=== PATIENT | male | born 1965 | race Two or more races ===

== ENCOUNTER 2024-05-20 08:58 | Emergency (ER) | payer BC, OTHER ==
[~2024-05-20] VITALS: Ht 175.3 cm; Wt 111.3 kg
[2024-05-20 09:10] VITALS: BP 130/80; PULSE 69; RESP 16; O2SAT 99
[2024-05-20 09:19] LABS: Urine Bacteria None Seen /hpf (None Seen)
[2024-05-20 09:44] LABS: Urine Blood TRACE /uL (Negative); Urine Clarity Clear (Clear); Urine Color Yellow (Yellow); Urine Mucus FEW (None Seen); Urine Protein, UAD Negative (Negative); Urine Specific Gravity 1.027 (1.001-1.035); Urine Squamous Epithelial Cell None Seen /hpf (<5); Urine Urobilinogen Normal (Negative); Urine WBC <1 /hpf (0 - 3)
--- NOTE | 2024-05-20 10:00 | ED.PDOC ---
GI ASSESSMENT HPI Comments 59 year old male presents to the ED with a chief complaint of abdominal pain onset 1 week. Patient states he has been experiencing diffused abdominal pain as well as constipation for the past week. PMHx HTN. Denies nausea, vomiting, diarrhea, shortness of breath, chest pain, headache. No other symptoms or modifying factors present at this time. Chief Complaint: Abdominal Pain Time Seen by MD: 09:18 Reviewed Notes: Medications, Allergies Allergies: Coded Allergies: NO KNOWN ALLERGIES (Unverified , 05/20/24) Information Source: Patient Mode of Arrival: Ambulatory Timing: Weeks Duration: Since onset Prehospital treatment: None Severity: Moderate Recent: None Recent Hx of: None Pain Location: Diffuse Associated sign and symptoms: Constipation, Abdominal Pain Past Medical History PAST MEDICAL HISTORY: HTN Surgical History: Denies all surgeries Family History Family History: Reviewed,noncontributory to illness, No family hx of Cancer, No family hx of DM, No family hx of Heart flo, No family hx of HTN, No family hx ofKidney flo, No family hx of Liver flo, No family hx of Lung flo, No family hx of Stroke Social History Smoker: Non-Smoker Alcohol: Denies ETOH Use Drugs: Denies Drug Use Lives In: Home Constitutional: denies: chills, diaphoresis, fatigue, fever, malaise, sweats, weakness, others EENTM: denies: blurred vision, double vision, ear bleeding, ear discharge, ear drainage, ear pain, ear ringing, eye pain, eye redness, hearing loss, mouth pain, mouth swelling, nasal discharge, nose bleeding, nose congestion, nose pain, photophobia, tearing, throat pain, throat swelling, voice changes, others Respiratory: denies: cough, hemoptysis, orthopnea, SOB at rest, shortness of breath, SOB with excertion, stridor, wheezing, others Cardiovascular: denies: chest pain, dizzy spells, diaphoresis, Dyspnea on exertion, edema, irregular heart beat, left arm pain, lightheadedness, palpitations, PND, syncope, others Gastrointestinal: reports: abdominal pain, constipated; denies: abdomen distended, blood streaked bowels, diarrhea, dysphagia, difficulty swallowing, hematemesis, melena, nausea, poor appetite, poor fluid intake, rectal bleeding, rectal pain, vomiting, others Genitourinary: denies: burning, dysuria, flank pain, frequency, hematuria, incontinence, penile discharge, penile sore, pain, testicle pain, testicle swelling, urgency, others Neurological: denies: dizziness, fainting, headache, left sided numbness, left sided weakness, numbness, paresthesia, pre-existing deficit, right sided numbness, right sided weakness, seizure, speech problems, tingling, tremors, weakness, others Musculoskeletal: denies: back pain, gout, joint pain, joint swelling, muscle pain, muscle stiffness, neck pain, others Integumetry: denies: bruises, change in color, change in hair/nails, dryness, laceration, lesions, lumps, rash, wounds, others Allergic/Immunocompromised: denies: Difficulty Healing, Frequent Infections, Hives, Itching, others Hematologic/Lymphatic: denies: anemia, blood clots, easy bleeding, easy bruising, swollen glands, others Endocrine: denies: excessive hunger, excessive sweating, excessive thirst, excessive urination, flushing, intolerance to cold, intolerance to heat, unexplained weight gain, unexplained weight loss, others Psychiatric: denies: anxiety, bipolar disorder, depression, hopeless, panic disorder, schizophrenia, sleepless, suicidal, others All Other Systems: Reviewed and Negative Physical Exam General Appearance: Moderate Distress HEENT: Normal ENT Inspection, Pharynx Normal, TMs Normal Neck: Full Range of Motion, Non-Tender, Normal, Normal Inspection Respiratory: Chest Non-Tender, Lungs Clear, No Accessory Muscle Use, No Respiratory Distress, Normal Breath Sounds Cardiovascular: No Edema, No JVD, No Murmur, No Gallop, Normal Peripheral Pulses, Regular Rate/Rhythm Breast Exam: Deferred Gastrointestinal: No Organomegaly, Non Tender, No Pulsatile Mass, Normal Bowel Sounds, Soft Genitalia: Deferred Pelvic: Deferred Rectal: Deferred Extremities: No calf tenderness, Normal capillary refill, Normal inspection, Normal range of motion, Non-tender, No pedal edema Musculoskeletal : Apperance: Normal Neurologic: Alert, tie binder II-XII nml as Tested, No Motor Deficits, Normal Affect, Normal Mood, No Sensory Deficits Cerebellar Function: Normal Reflexes: Normal Skin: Dry, Normal Color, Warm Peripheral Pulses: 3+ Radial (R), 3+ Radial (L) Lymphatic: No Adenopathy Was a procedure done? Was a procedure done?: No GI differential Dx Differential Diagnosis: Constipation, Diverticular disease, Esophagitis, Gastritis/PUD, Gastroenteritis X-Ray, Labs, Meds, VS Vital Signs Date Time Temp Pulse Resp B/P (MAP) Pulse Ox O2 Delivery O2 Flow Rate FiO2 05/20/24 09:10 99.2 69 16 130/80 (97) 99 Lab Test 05/20/24 09:13 Range/Units Urine Color Yellow Yellow Urine Clarity Clear Clear Urine pH 6.0 5.0-9.0 Urine Specific [place] 1.027 1.001-1.035 Urine Protein Negative Negative Urine Ketones Negative Negative Urine Blood Trace H Negative /uL Urine Nitrite Negative Negative Urine Bilirubin Negative Negative Urine Urobilinogen Normal Negative mg/dL Urine Leukocyte Esterase Negative Negative /uL Urine RBC 2 0 - 3 /hpf Urine WBC <1 0 - 3 /hpf Urine Squamous Epithelial Cells None seen <5 /hpf Urine Bacteria None seen None Seen /hpf Urine Mucus Few None Seen Urine Glucose Normal Normal mg/dL Patient alert. Complaining of abdominal pain. Vitals stable. Urinalysis shows blood. Possible kidney stone. Establish intravenous access. Was given fluids. Was given Toradol. Explained to the patient. Continue cardiac monitoring. Time of 1ST Reevaluation: 09:48 Reevaluation 1ST: Unchanged Patient Education/Counseling: Diagnosis, Treatment, Prognosis Family Education/Counseling: No Family Present Additional Information I reviewed the following notes from patient's past medical encounters: The following tests were ordered, and results were reviewed by me: UA, CBC, BMP, CT AB PEL WO CON I reviewed and agreed with the following test results read by other providers: CT ABD PEL WO CON I discussed treatment and results with medical personnel and: patient Departure 1 Departure Time of Disposition: 11:29 Impression: Primary Impression: Acute abdominal pain Disposition: ADMITTED INPATIENT Admit to: Med Surg Condition: Guarded Critical Care Note Critical Care Time?: No Stability Stability form required: No Heart Score Heart Score: Heart Score Response (Comments) Value History N/A 0 EKG N/A 0 Age N/A 0 Risk Factors N/A 0 Troponin N/A 0 Total 0 I personally scribed for GARRETT ANDERSON MD ([email or web address]) on 05/20/24 at 10:00. Electronically submitted by Yana Johnson ([email or web address]). I personally scribed for GARRETT ANDERSON MD ([email or web address]) on 05/20/24 at 10:39. Electronically submitted by Yana Johnson ([email or web address]). I personally scribed for GARRETT ANDERSON MD ([email or web address]) on 05/20/24 at 15:09. Electronically submitted by Yana Johnson ([email or web address]). GARRETT ANDERSON MD May 20, 2024 10:00
[2024-05-20] MEDS ORDERED: SODIUM CHLORIDE 0.9% 1,000 ML IVB ONE (11:30)
[2024-05-20] MEDS ORDERED: KETOROLAC TROMETH 30 MG/ML 1ML VIAL IV ONE (11:30)
[2024-05-20] MEDS ORDERED: ONDANSETRON HCL 4 MG/2 ML VIAL IV ONE (11:30)
== END 2024-05-20 14:31 | disposition left against medical advice (07) ==
LOC: ER 08:58
DX: R10.84 Generalized abdominal pain (principal); K59.00 Constipation, unspecified; I10 Essential (primary) hypertension
CPT/HCPCS: 81001

== ENCOUNTER 2024-06-09 08:47 | Inpatient (IN) | payer BC ==
[~2024-06-09] VITALS: Ht 175.3 cm; Wt 109.3 kg
[2024-06-09 09:01] LABS: Urine Bacteria None Seen /hpf (None Seen)
[2024-06-09 09:09] LABS: Urine Blood TRACE /uL (Negative); Urine Clarity Clear (Clear); Urine Color Light-Yellow (Yellow); Urine Mucus FEW (None Seen); Urine Protein, UAD Negative (Negative); Urine Specific Gravity 1.025 (1.001-1.035); Urine Squamous Epithelial Cell FEW /hpf (<5); Urine Urobilinogen Normal (Negative); Urine WBC < 1 /HPF (0-3)
[2024-06-09 09:25] VITALS: PULSE 69; RESP 17; O2SAT 94
--- NOTE | 2024-06-09 10:20 | ED.PDOC ---
GI ASSESSMENT HPI Comments 59 y/o M presents to the ED for CC of abdominal pain. Patient states, that he has been experiencing abdominal pain [id number]; with symptoms worsening in the last 3days. Patient relays, that he has been constipated and has been taking prolax with no relief. Patient comments on current 02/20 abdominal pain. Patient denies social history. Patient denies dysuria, hematuria, or N/V/D. No other symptoms or modifying factors at this time. Chief Complaint: Abdominal Pain Time Seen by MD: 09:10 Primary Care Provider: NONE Reviewed Notes: Nurses Notes, Medications, Allergies Allergies: Coded Allergies: NO KNOWN ALLERGIES (Unverified , 05/20/24) Information Source: Patient Mode of Arrival: Ambulatory Timing: Weeks Duration: Since onset Prehospital treatment: None Vomitus: None Stool: Normal Severity: Moderate Recent: Travel Recent Hx of: None Pain Location: Diffuse Modifying Factors: Nothing Associated sign and symptoms: None Past Medical History PAST MEDICAL HISTORY: HTN Surgical History: Denies all surgeries Family History Family History: Reviewed,noncontributory to illness, No family hx of Cancer, No family hx of DM, No family hx of Heart flo, No family hx of HTN, No family hx ofKidney flo, No family hx of Liver flo, No family hx of Lung fol, No family hx of Stroke Social History Smoker: Non-Smoker Alcohol: Denies ETOH Use Drugs: Denies Drug Use Lives In: Home Constitutional: denies: chills, diaphoresis, fatigue, fever, malaise, sweats, weakness, others EENTM: denies: blurred vision, double vision, ear bleeding, ear discharge, ear drainage, ear pain, ear ringing, eye pain, eye redness, hearing loss, mouth irma n, mouth swelling, nasal discharge, nose bleeding, nose congestion, nose pain, photophobia, tearing, throat pain, throat swelling, voice changes, others Respiratory: denies: cough, hemoptysis, orthopnea, SOB at rest, shortness of breath, SOB with excertion, stridor, wheezing, others Cardiovascular: denies: chest pain, dizzy spells, diaphoresis, Dyspnea on exertion, edema, irregular heart beat, left arm pain, lightheadedness, palpitations, PND, syncope, others Gastrointestinal: reports: abdominal pain, constipated; denies: abdomen distended, blood streaked bowels, diarrhea, dysphagia, difficulty swallowing, hematemesis, melena, nausea, poor appetite, poor fluid intake, rectal bleeding, rectal pain, vomiting, others Genitourinary: denies: burning, dysuria, flank pain, frequency, hematuria, incontinence, penile discharge, penile sore, pain, testicle pain, testicle swelling, urgency, others Neurological: reports: dizziness; denies: fainting, headache, left sided numbne ss, left sided weakness, numbness, paresthesia, pre-existing deficit, right sided numbness, right sided weakness, seizure, speech problems, tingling, tremors, weakness, others Musculoskeletal: denies: back pain, gout, joint pain, joint swelling, muscle pain, muscle stiffness, neck pain, others Integumetry: denies: bruises, change in color, change in hair/nails, dryness, laceration, lesions, lumps, rash, wounds, others Allergic/Immunocompromised: denies: Difficulty Healing, Frequent Infections, Hives, Itching, others Hematologic/Lymphatic: denies: anemia, blood clots, easy bleeding, easy bruising, swollen glands, others Endocrine: denies: excessive hunger, excessive sweating, excessive thirst, excessive urination, flushing, intolerance to cold, intolerance to heat, unexplained weight gain, unexplained weight loss, others Psychiatric: denies: anxiety, bipolar disorder, depression, hopeless, panic disorder, schizophrenia, sleepless, suicidal, others All Other Systems: Reviewed and Negative Physical Exam General Appearance: Moderate Distress HEENT: Normal ENT Inspection, Pharynx Normal, TMs Normal Neck: Full Range of Motion, Non-Tender, Normal, Normal Inspection Respiratory: Chest Non-Tender, Lungs Clear, No Accessory Muscle Use, No Respiratory Distress, Normal Breath Sounds Cardiovascular: No Edema, No JVD, No Murmur, No Gallop, Normal Peripheral Pulses, Regular Rate/Rhythm Breast Exam: Deferred Gastrointestinal: Distended, No Organomegaly, No Pulsatile Mass, Normal Bowel Sounds, Soft Genitalia: Deferred Pelvic: Deferred Rectal: Deferred Extremities: No calf tenderness, Normal capillary refill, Normal inspection, No rmal range of motion, Non-tender, No pedal edema Musculoskeletal : Apperance: Normal Neurologic: Alert, 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 Was a procedure done?: No GI differential Dx Differential Diagnosis: Cholangitis, Cholecystitis, Constipation, Esophagitis, Gastritis/PUD, Gastroenteritis, Electrolyte Imbalance, Food Poisoning, Bacterial, Viral X-Ray, Labs, Meds, VS Vital Signs Date Time Temp Pulse Resp B/P (MAP) Pulse Ox O2 Delivery O2 Flow Rate FiO2 06/09/24 10:30 69 24 129/75 06/09/24 10:00 72 20 132/87 (102) 91 06/09/24 09:25 69 17 94 Room Air* 0 21 06/09/24 09:25 98.8 69 17 129/75 (93) 94 98.8 06/09/24 09:02 89 06/09/24 08:51 98.6 85 20 156/96 (116) 97 Lab Test 06/09/24 10:30 06/09/24 08:52 Range/Units White Blood Count 4.4 4.4-10.8 10^3/uL Red Blood Count 5.09 4.5-5.90 10^6/uL Hemoglobin 15.5 13.5-17.5 g/dL Hematocrit 45.6 41.0-53.0 % Mean Corpuscular Volume 89.6 80.0-100.0 fL Mean Corpuscular Hemoglobin 30.4 28.0-32.0 pg Mean Corpuscular Hemoglobin Concent 33.9 32.0-36.0 g/dL Red Cell Distribution Width 13.7 11.8-14.3 % Platelet Count 227 140-450 10^3/uL Mean Platelet Volume 8.4 6.9-10.8 fL Neutrophils (%) (Auto) 46.8 37.0-80.0 % Lymphocytes (%) (Auto) 37.7 10.0-50.0 % Monocytes (%) (Auto) 11.0 0.0-12.0 % Eosinophils (%) (Auto) 3.7 0.0-7.0 % Basophils (%) (Auto) 0.8 0.0-2.0 % Neutrophils # (Auto) 2.0 1.6-8.6 10 ^3/uL Lymphocytes # (Auto) 1.6 0.4-5.4 10 ^3/uL Monocytes # (Auto) 0.5 0-1.3 10 ^3/uL Eosinophils # (Auto) 0.2 0-0.8 10 ^3/uL Basophils # (Auto) 0 0-0.2 10 ^3/uL Nucleated Red Blood Cells 0.1 % Sodium Level 141 136-145 mmol/L Potassium Level 4.2 3.5-5.1 mmol/L Chloride Level 109 H 98-107 mmol/L Carbon Dioxide Level 24 20-31 mmol/L Anion Gap 8 5-15 Blood Urea Nitrogen 16 9-23 mg/dL Creatinine 0.96 0.700-1.30 mg/dL Glomerular Filtration Rate Calc 90 >90 mL/min BUN/Creatinine Ratio 16.7 10.0-20.0 Serum Glucose 93 74-106 mg/dL Calcium Level 9.7 8.7-10.4 mg/dL Total Bilirubin 0.5 0.2-1.0 mg/dL Aspartate Amino Transferase (AST) 27 13-40 U/L Alanine Aminotransferase (ALT) 34 7-40 U/L Alkaline Phosphatase 153 H 46-116 U/L Total Protein 7.0 5.7-8.2 g/dL Albumin 4.5 3.2-4.8 g/dL Urine Color Light-yellow Yellow Urine Clarity Clear Clear Urine pH 6.0 5.0-9.0 Urine Specific [place] 1.025 1.001-1.035 Urine Protein Negative Negative Urine Ketones Negative Negative Urine Blood Trace H Negative /uL Urine Nitrite Negative Negative Urine Bilirubin Negative Negative Urine Urobilinogen Normal Negative mg/dL Urine Leukocyte Esterase Negative Negative /uL Urine RBC 5 0 - 3 /hpf Urine Microscopic WBC < 1 0-3 /HPF Urine Squamous Epithelial Cells Few <5 /hpf Urine Bacteria None seen None Seen /hpf Urine Mucus Few None Seen Urine Glucose Normal Normal mg/dL Current Medications Medications (Trade) Dose Ordered Sig/Mohan Route Start Time Stop Time Status Last Admin Sodium Chloride 1,000 ml @ 1,000 mls/hr Q1H ONCE IV 06/09/24 10:15 06/09/24 11:14 DC 06/09/24 10:31 Sodium Chloride 1,000 ml @ 150 mls/hr Q6H40M ONCE IV 06/09/24 10:15 1/27/25 16:54 06/09/24 11:03 Morphine Sulfate 4 mg ONCE ONCE IV 06/09/24 10:15 06/09/24 10:16 DC 06/09/24 10:30 Ondansetron HCl (Zofran) 4 mg ONCE ONCE IV 06/09/24 10:15 06/09/24 10:16 DC 06/09/24 10:31 [place] [id number] Ph: [phone] DIAGNOSTIC IMAGING Diagnostic Imaging Report : [id number] Signed PATIENT: ADRIEN RIDDLE PACCT: [id number] UNIT: [id number] : 1965 LOC: ER ROOM / BED: / AGE / SEX: 59 / M ADM STATUS: REG ER SERVICE 1009 ORDERING PHYSICIAN: GARRETT ANDERSON MD PROCEDURE(s): ABPL - CT AB PEL WO CON-NO ORAL OR IV REASON: colitis ORDER NUMBER(s): [id number], ACCESSION NUMBER(s): [id number] Exam: CT CT AB PEL WO CON-NO ORAL OR IV History: colitis Comparison Study: None Technique: Multidetector spiral CT of the abdomen and pelvis was performed from lung bases to pubic symphysis. Imaging was performed without IV contrast. Axial, coronal and sagittal multiplanar reformats were obtained from the axial data set by the technologist. Radiation dose : Abdomen/Pelvis: CTDIvol 21 mGy, DLP 1404 mGy*cm. Findings: Evaluation of solid organs is limited due to lack of intravenous contrast use. Lung Bases: Atelectasis and scarring in the lung bases. Liver: The liver is normal in size. No focal lesions. Gallbladder and biliary Tree: Cholelithiasis noted without secondary findings of cholecystitis or biliary obstruction. Spleen: Unremarkable Pancreas: The pancreas is grossly normal in appearance. Adrenal Glands: Unremarkable Kidneys: Bilateral renal cysts. No hydronephrosis or nephrolithiasis. Bladder: Grossly unremarkable for degree of distention. Bowel: The stomach is grossly normal in appearance. Small bowel and colon are normal in caliber and distribution. Normal appendix is visualized in the right lower quadrant without findings of appendicitis. Ascites: Absent Lymphadenopathy: No mesenteric, retroperitoneal or periportal lymphadenopathy. Abdominal wall and Mesentery: Ga mesentery. Vasculature: The visualized abdominal aorta is normal in size and caliber. Evaluation of abdominal and pelvic vessels is limited due to lack of intravenous contrast. Pelvic Organs: Unremarkable Musculoskeletal: No aggressive focal bony lesions, acute fractures or dislocation. IMPRESSION: 1. No acute abdominal or pelvic findings. Cholelithiasis. Bilateral renal cysts. Mild ga mesentery which is nonspecific. Clinical correlation and continued follow-up is recommended. Radiation optimization: All CT scans at this facility use at least one of these dose optimization techniques: Automated exposure control mA and/or kV adjustment per patient size (includes targeted exams where dose is matched to clinical indication) or iterative reconstruction. HS:Y ATED BY: FUENTES DE LA VEGA MD DICTATED DATE/TIME: 06/09/24 1057 SIGNED BY: FUENTES DE LA VEGA MD SIGNED DATE/TIME: 06/09/24 1057 CC: Patient alert. Complaining of abdominal pain. Was given pain medication. Vitals stable. Diffusely tender. Establish intravenous access. Was given fluids. Possible kidney stone. Possible colitis. Explained to the patient. Continue cardiac monitoring. Time of 1ST Reevaluation: 09:40 Reevaluation 1ST: Unchanged Patient Education/Counseling: Diagnosis, Treatment Family Education/Counseling: No Family Present Departure 1 Departure Time of Disposition: 10:41 Impression: Primary Impression: Acute abdominal pain Additional Impression: Hematuria Qualified Codes: R31.9 - Hematuria, unspecified Disposition: 09 ADMITTED INPATIENT Admit to: Med Surg Condition: Guarded Critical Care Note Critical Care Time?: No Stability Stability form required: No Heart Score Heart Score: Heart Score Response (Comments) Value History N/A 0 EKG N/A 0 Age N/A 0 Risk Factors N/A 0 Troponin N/A 0 Total 0 I personally scribed for GARRETT ANDERSON MD ([email or web address]) on 06/09/24 at 10:20. Electronically submitted by Nancie Ramirez ([email or web address]). I personally scribed for GARRETT ANDERSON MD ([email or web address]) on 06/09/24 at 11:26. Electronically submitted by Nancie Ramirez ([email or web address]). GARRETT ANDERSON MD Jun 09, 2024 10:20
[2024-06-09] MEDS: MORPHINE SULFATE 4 MG/ML SYR/VIAL IV ONE (10:30)
[2024-06-09] MEDS: ONDANSETRON HCL 4 MG/2 ML VIAL IV ONE (10:31)
[2024-06-09] MEDS: SODIUM CHLORIDE 0.9% 1,000 ML IV ONE ×2 (10:31→11:03)
[2024-06-09 10:54] LABS: Basophils # (auto) 0 10 ^3/uL (0-0.2); Basophils % (auto) 0.8 % (0.0-2.0); Eosinophils # (auto) 0.2 10 ^3/uL (0-0.8); Eosinophils % (auto) 3.7 % (0.0-7.0); Hematocrit 45.6 % (41.0-53.0); Hemoglobin 15.5 g/dL (13.5-17.5); Lymphocytes # (auto) 1.6 10 ^3/uL (0.4-5.4); Lymphocytes % (auto) 37.7 % (10.0-50.0); Mean Corpuscular Hemoglobin 30.4 pg (28.0-32.0); Mean Corpuscular Hgb Conc. 33.9 g/dL (32.0-36.0); Mean Corpuscular Volume 89.6 fL (80.0-100.0); Monocytes # (auto) 0.5 10 ^3/uL (0-1.3); Neutrophils % (auto) 46.8 % (37.0-80.0); Nucleated Red Blood Cells % 0.1 %; Platelet Count (auto) 227 10^3/uL (140-450); Red Blood Cells 5.09 10^6/uL (4.5-5.90); Red Cell Distribution Width 13.7 % (11.8-14.3); White Blood Cell 4.4 10^3/uL (4.4-10.8)
--- NOTE | 2024-06-09 10:59 | DVH ---
Exam: CT CT AB PEL WO CON-NO ORAL OR IV History: colitis Comparison Study: None Technique: Multidetector spiral CT of the abdomen and pelvis was performed from lung bases to pubic symphysis. Imaging was performed without IV contrast. Axial, coronal and sagittal multiplanar reform ats were obtained from the axial data set by the technologist. Radiation dose : Abdomen/Pelvis: CTDIvol 21 mGy, DLP 1404 mGy*cm. Findings: Evaluation of solid organs is limited due to lack of intravenous contrast use. Lung Bases: Atelectasis and scarring in the lung bases. Liver: The liver is normal in size. No focal lesions. Gallbladder and biliary Tree: Cholelithiasis noted without secondary findings of cholecystitis or douglas iary obstruction. Spleen: Unremarkable Pancreas: The pancreas is grossly normal in appearance. Adrenal Glands: Unremarkable Kidneys: Bilateral renal cysts. No hydronephrosis or nephrolithiasis. Bladder: Grossly unremarkable for degree of distention. Bowel: The stomach is grossly normal in appearance. Small bowel and colon are normal in caliber and d istribution. Normal appendix is visualized in the right lower quadrant without findings of appendici tis. Ascites: Absent Lymphadenopathy: No mesenteric, retroperitoneal or periportal lymphadenopathy. Abdominal wall and Mesentery: Ga mesentery. Vasculature: The visualized abdominal aorta is normal in size and caliber. Evaluation of abdominal a nd pelvic vessels is limited due to lack of intravenous contrast. Pelvic Organs: Unremarkable Musculoskeletal: No aggressive focal bony lesions, acute fractures or dislocation. IMPRESSION: 1. No acute abdominal or pelvic findings. Cholelithiasis. Bilateral renal cysts. Mild ga mesentery which is nonspecific. Clinical correlation and continued follow-up is recommended. Radiation optimization: All CT scans at this facility use at least one of these dose optimization veronica hniques: Automated exposure control mA and/or kV adjustment per patient size (includes targeted exams where dose is matched to clinical indication) or iterative reconstruction. HS:Y
[2024-06-09 11:23] LABS: Alanine Aminotransferase 34 U/L (7-40); Albumin 4.5 g/dL (3.2-4.8); Anion Gap 8 (5-15); Aspartate Aminotransferase 27 U/L (13-40); BUN/Creatinine Ratio 16.7 (10.0-20.0); Blood Urea Nitrogen 16 mg/dL (9-23); Calcium 9.7 mg/dL (8.7-10.4); Carbon Dioxide 24 mmol/L (20-31); Glucose 93 mg/dL (74-106); Potassium 4.2 mmol/L (3.5-5.1); Sodium 141 mmol/L (136-145)
[2024-06-09 11:24] LABS: Bilirubin, Total 0.5 mg/dL (0.2-1.0)
[2024-06-09 11:25] LABS: Alkaline Phosphatase 153 U/L (46-116); Chloride 109 mmol/L (98-107)
[2024-06-09] MEDS ORDERED: DOCUSATE SOD 100 MG CAP PO PRN (12:45)
[2024-06-09] MEDS ORDERED: ACETAMINOPHEN 325 MG TAB PO PRN (12:45)
[2024-06-09] MEDS ORDERED: MORPHINE SULFATE INJ 2 MG/ml SYRG IV PRN ×2 (12:45→14:30)
[2024-06-09] MEDS: DOCUSATE SOD 100 MG CAP PO ONE (13:31)
[2024-06-09] MEDS: SODIUM CHLOR 0.9% PF (SALINE LOCK) 10ML VIAL/SYR IV SCH (13:33)
--- NOTE | 2024-06-09 14:27 | DVHHP2 ---
History of Present Illness Reason for Visit: Acute abdominal pain History of Present Illness The patient is a 59-year-old male with past medical history of hypertension presented to [facility] ED with complaint of acute abdominal pain. Patient reports he has been experiencing abdominal pain for the past 4 weeks, associated constipation, getting worse today that prompted this visit. Patient was seen and evaluated in the ED, laboratory data shows WBC 4.4, platelets 227, sodium 141, potassium 4.2, BUN 16, creatinine 0.96, GFR 90, glucose 93. Abdomen/pelvis CT showed no acute abdominal or pelvic findings. Patient was given IV morphine sulfate 4 mg x 1, please see medication orders section in the computer. On my assessment, at bedside, patient denies chest pain, no headache, no dizziness, no shortness of breath, no abdominal pain at this moment, no diarrhea, no nausea, no vomiting, no fever, no chills. Patient was admitted for further evaluation and medical management. Past Medical History HTN Past Surgical History Denies all surgeries Family History Reviewed, noncontributory to the management of this case. Past Social History The patient lives at home, denies smoking, alcohol or illicit drugs abuse. Review of Systems Constitutional: No: Fever, Chills, Sweats, Weakness, Malaise, Other Eyes: No: Pain, Vision change, Conjunctivae inflammation, Eyelid inflammation, Other, Redness ENT: No: Ear pain, Ear discharge, Nose pain, Nose discharge, Nose congestion, Mouth pain, Mouth swelling, Throat pain, Throat swelling, Other Respiratory: No: Cough, Dry, Shortness of breath, SOB with excertion, Wheezing, Hemoptysis, Pleuritic Pain, Sputum, Wheezing, Other Cardiovascular: No: Chest Pain, Palpitations, Orthopnea, Paroxysmal Noc. Dyspnea, Edema, Lt Headedness, Other Gastrointestinal: Abdominal Pain, Constipation; No: Nausea, Vomiting, Diarrhea, Melena, Hematochezia, Other Genitourinary: No Dysuria, No Frequency, No Incontinence, No Hematuria, No Re tention, No Other Musculoskeletal: No: other, neck pain, shoulder pain, arm pain, back pain, hand pain, leg pain, foot pain Skin: No: Rash, Lesions, Jaundice, Bruising, Other Neurological: No: Weakness, Numbness, Incoordination, Change in speech, Confusion, Seizures, Other Allergies: Coded Allergies: NO KNOWN ALLERGIES (Unverified , 05/20/24) Medications Current Medications Medications Dose Ordered Sig/Mohan Route Start Time Stop Time Status Last Admin Dose Admin Pantoprazole Sodium 40 mg DAILY IV 06/10/24 10:00 Sodium Chloride 10 ml Q8HR IV 06/09/24 14:00 06/09/24 13:33 10 ML Acetaminophen/ Hydrocodone Bitart 1 tab Q4HP PRN PO 06/09/24 12:45 Ondansetron HCl 4 mg Q4HP PRN IV 06/09/24 12:45 Docusate Sodium 100 mg BIDPRN PRN PO 06/09/24 12:45 Acetaminophen 650 mg Q6HP PRN PO 06/09/24 12:45 Morphine Sulfate 2 mg Q4HPRN PRN IV 06/09/24 12:45 Exam Vital Signs Vital Signs Date Time Temp Pulse Resp B/P (MAP) Pulse Ox O2 Delivery O2 Flow Rate FiO2 06/09/24 14:00 57 24 129/75 (93) 95 06/09/24 09:25 Room Air* 0 21 06/09/24 09:25 98.8 98.8 General Appearance: Alert, Oriented X3, Cooperative, No acute distress HEENT: Atraumatic, PERRLA, EOMI, Mucous membr. moist/pink Respiratory: Clear to auscultation, Normal air movement Cardiovascular: Regular rate, Normal S1, Normal S2, No murmurs Abdominal: Normal bowel sounds, Soft, No hepatospenomegaly, No masses, Other (Reports tenderness) Extremities: No clubbing, No cyanosis, No edema, Normal pulses, No tenderness/swelling Skin: No rashes, No breakdown, No significant lesion Neuro: Normal gait, Normal speech, Strength at 5/5 X4 ext, Normal tone, Sensation intact, Cranial nerves 3-12 NL, Reflexes 2+ Psych/Mental Status: Mental status NL, Mood NL Labs/Xrays Labs Test 06/09/24 10:30 06/09/24 08:52 Range/Units White Blood Count 4.4 4.4-10.8 10^3/uL Red Blood Count 5.09 4.5-5.90 10^6/uL Hemoglobin 15.5 13.5-17.5 g/dL Hematocrit 45.6 41.0-53.0 % Mean Corpuscular Volume 89.6 80.0-100.0 fL Mean Corpuscular Hemoglobin 30.4 28.0-32.0 pg Mean Corpuscular Hemoglobin Concent 33.9 32.0-36.0 g/dL Red Cell Distribution Width 13.7 11.8-14.3 % Platelet Count 227 140-450 10^3/uL Mean Platelet Volume 8.4 6.9-10.8 fL Neutrophils (%) (Auto) 46.8 37.0-80.0 % Lymphocytes (%) (Auto) 37.7 10.0-50.0 % Monocytes (%) (Auto) 11.0 0.0-12.0 % Eosinophils (%) (Auto) 3.7 0.0-7.0 % Basophils (%) (Auto) 0.8 0.0-2.0 % Neutrophils # (Auto) 2.0 1.6-8.6 10 ^3/uL Lymphocytes # (Auto) 1.6 0.4-5.4 10 ^3/uL Monocytes # (Auto) 0.5 0-1.3 10 ^3/uL Eosinophils # (Auto) 0.2 0-0.8 10 ^3/uL Basophils # (Auto) 0 0-0.2 10 ^3/uL Nucleated Red Blood Cells 0.1 % Sodium Level 141 136-145 mmol/L Potassium Level 4.2 3.5-5.1 mmol/L Chloride Level 109 H 98-107 mmol/L Carbon Dioxide Level 24 20-31 mmol/L Anion Gap 8 5-15 Blood Urea Nitrogen 16 9-23 mg/dL Creatinine 0.96 0.700-1.30 mg/dL Glomerular Filtration Rate Calc 90 >90 mL/min BUN/Creatinine Ratio 16.7 10.0-20.0 Serum Glucose 93 74-106 mg/dL Calcium Level 9.7 8.7-10.4 mg/dL Total Bilirubin 0.5 0.2-1.0 mg/dL Aspartate Amino Transferase (AST) 27 13-40 U/L Alanine Aminotransferase (ALT) 34 7-40 U/L Alkaline Phosphatase 153 H 46-116 U/L Total Protein 7.0 5.7-8.2 g/dL Albumin 4.5 3.2-4.8 g/dL Urine Color Light-yellow Yellow Urine Clarity Clear Clear Urine pH 6.0 5.0-9.0 Urine Specific [place] 1.025 1.001-1.035 Urine Protein Negative Negative Urine Ketones Negative Negative Urine Blood Trace H Negative /uL Urine Nitrite Negative Negative Urine Bilirubin Negative Negative Urine Urobilinogen Normal Negative mg/dL Urine Leukocyte Esterase Negative Negative /uL Urine RBC 5 0 - 3 /hpf Urine Microscopic WBC < 1 0-3 /HPF Urine Squamous Epithelial Cells Few <5 /hpf Urine Bacteria None seen None Seen /hpf Urine Mucus Few None Seen Urine Glucose Normal Normal mg/dL PATIENT: ADRIEN RIDDLE PACCT: [id number] UNIT: [id number] : 1965 LOC: ER ROOM / BED: / AGE / SEX: 59 / M ADM STATUS: REG ER SERVICE 1009 ORDERING PHYSICIAN: GARRETT ANDERSON MD PROCEDURE(s): ABPL - CT AB PEL WO CON-NO ORAL OR IV REASON: colitis ORDER NUMBER(s): [id number], ACCESSION NUMBER(s): [id number] Exam: CT CT AB PEL WO CON-NO ORAL OR IV History: colitis Comparison Study: None Technique: Multidetector spiral CT of the abdomen and pelvis was performed from lung bases to pubic symphysis. Imaging was performed without IV contrast. Axial, coronal and sagittal multiplanar reformats were obtained from the axial data set by the technologist. Radiation dose : Abdomen/Pelvis: CTDIvol 21 mGy, DLP 1404 mGy*cm. Findings: Evaluation of solid organs is limited due to lack of intravenous contrast use. Lung Bases: Atelectasis and scarring in the lung bases. Liver: The liver is normal in size. No focal lesions. Gallbladder and biliary Tree: Cholelithiasis noted without secondary findings of cholecystitis or biliary obstruction. Spleen: Unremarkable Pancreas: The pancreas is grossly normal in appearance. Adrenal Glands: Unremarkable Kidneys: Bilateral renal cysts. No hydronephrosis or nephrolithiasis. Bladder: Grossly unremarkable for degree of distention. Bowel: The stomach is grossly normal in appearance. Small bowel and colon are normal in caliber and distribution. Normal appendix is visualized in the right lower quadrant without findings of appendicitis. Ascites: Absent Lymphadenopathy: No mesenteric, retroperitoneal or periportal lymphadenopathy. Abdominal wall and Mesentery: Ga mesentery. Vasculature: The visualized abdominal aorta is normal in size and caliber. Evaluation of abdominal and pelvic vessels is limited due to lack of intravenous contrast. Pelvic Organs: Unremarkable Musculoskeletal: No aggressive focal bony lesions, acute fractures or dislocation. IMPRESSION: 1. No acute abdominal or pelvic findings. Cholelithiasis. Bilateral renal cysts. Mild ga mesentery which is nonspecific. Clinical correlation and continued follow-up is recommended. Assessment/Plan Assessment/Plan Acute abdominal pain Constipation Plan 1. Admit to med surge unit 2. Breathing treatment 3. Pain control management 4. Management of fluids and electrolytes 5. Consultation for GI/hospitalist 6. Diagnostic tests abdomen/pelvis CT 7. DVT prophylaxis-on SCDs 8. Repeat labs CBC, CMP in a.m. 9. Continue with current medical management 10. Treatment plan discussed with patient and RN. Patient verbalized understanding. Plan discussed with: Patient, Spouse ( at bedside), Other (RN) My Orders Orders - CARA MCARTHUR DNP Procedure Category Date Status Time Pantoprazole PHA 06/10/24 In Process (Protonix) 10:00 Allergies SAVANNAH 06/09/24 In Process 12:32 Code Status CODE 06/09/24 Transmitted 12:32 Sodium Chloride Lock PHA 06/09/24 In Process (Saline Lock Ns) 14:00 Oxygen Per Hour RT 06/09/24 Transmitted 12:32 Hydrocodone-Acet PHA 06/09/24 In Process 5/325mg Tab (Rex 12:45 Ondansetron Hcl PHA 06/09/24 In Process (Zofran) 12:45 Docusate Sodium PHA 06/09/24 In Process Capsule (Colace 12:45 Complete Blood Count LAB 06/10/24 Verified 04:00 Comprehensive LAB 06/10/24 Verified Metabolic Panel 04:00 Cardiac DIET 06/09/24 Transmitted Diet-2gna,Lofat,Lochol Lunch Condition: Serious SAVANNAH 06/09/24 In Process 12:32 Acetaminophen Tablet PHA 06/09/24 In Process (Tylenol Tablet) 12:45 Bedrest With Bathroom SAVANNAH 06/09/24 In Process Privileg 12:32 Morphine Sulfate PHA 06/09/24 In Process Injection 12:45 Sequential SAVANNAH 06/09/24 In Process Compression Device Problem List: (1) Acute abdominal pain (2) Constipation Date of Service: Jun 09, 2024 Billing Provider: CARA MCARTHUR DNP Common Visit Codes: [id number] INP/OBS CARE (HIGH) CARA MCARTHUR DNP Jun 09, 2024 14:27
[2024-06-09] MEDS ORDERED: NITROGLYCERIN 0.4 MG SL TAB SL PRN (14:30)
[2024-06-09] MEDS ORDERED: HYDROcodone-ACET 10/325MG TAB PO ONE (15:00)
[2024-06-09] MEDS: HYDROcodone-ACET 10/325MG TAB PO ONE (16:35)
[2024-06-09] MEDS: ONDANSETRON HCL 4 MG/2 ML VIAL IV PRN (19:48)
[2024-06-09] MEDS: HYDROcodone-ACET 5/325MG TAB PO PRN (21:52)
[2024-06-09 22:20] VITALS: BP 120/83; PULSE 66; RESP 18; TEMP 98.6; O2SAT 93
[2024-06-09 23:36] VITALS: BP 120/83; PULSE 66; RESP 18; TEMP 98.6
[2024-06-10 01:00] VITALS: BP 113/72; PULSE 60; RESP 18; TEMP 97.8; O2SAT 94
[2024-06-10 05:00] VITALS: BP 114/68; PULSE 65; RESP 18; TEMP 97.8; O2SAT 92
[2024-06-10 07:20] LABS: Basophils # (auto) 0 10 ^3/uL (0-0.2); Basophils % (auto) 0.4 % (0.0-2.0); Eosinophils # (auto) 0.1 10 ^3/uL (0-0.8); Eosinophils % (auto) 2.4 % (0.0-7.0); Hematocrit 45.2 % (41.0-53.0); Hemoglobin 15.1 g/dL (13.5-17.5); Lymphocytes # (auto) 1.2 10 ^3/uL (0.4-5.4); Lymphocytes % (auto) 22.9 % (10.0-50.0); Mean Corpuscular Hemoglobin 30.4 pg (28.0-32.0); Mean Corpuscular Hgb Conc. 33.5 g/dL (32.0-36.0); Mean Corpuscular Volume 90.8 fL (80.0-100.0); Monocytes # (auto) 0.5 10 ^3/uL (0-1.3); Monocytes % (auto) 9.8 % (0.0-12.0); Neutrophils # (auto) 3.5 10 ^3/uL (1.6-8.6); Neutrophils % (auto) 64.5 % (37.0-80.0); Nucleated Red Blood Cells % 0.1 %; Platelet Count (auto) 204 10^3/uL (140-450); Red Blood Cells 4.98 10^6/uL (4.5-5.90); Red Cell Distribution Width 13.6 % (11.8-14.3); White Blood Cell 5.4 10^3/uL (4.4-10.8)
[2024-06-10 07:56] LABS: Alanine Aminotransferase 33 U/L (7-40); Albumin 4.2 g/dL (3.2-4.8); Anion Gap 7 (5-15); Aspartate Aminotransferase 29 U/L (13-40); Bilirubin, Total 0.6 mg/dL (0.2-1.0); Blood Urea Nitrogen 12 mg/dL (9-23); Calcium 9.7 mg/dL (8.7-10.4); Carbon Dioxide 25 mmol/L (20-31); Glucose 94 mg/dL (74-106); Potassium 4.3 mmol/L (3.5-5.1); Sodium 140 mmol/L (136-145); Total Protein 6.6 g/dL (5.7-8.2)
[2024-06-10 08:08] LABS: Alkaline Phosphatase 131 U/L (46-116); Chloride 108 mmol/L (98-107)
[2024-06-10 09:00] VITALS: BP 130/80; PULSE 63; RESP 17; TEMP 98.5; O2SAT 94
[2024-06-10] MEDS: PANTOPRAZOLE 40 MG/10 ML VIAL INJ IV SCH (09:34)
--- NOTE | 2024-06-10 11:31 | DVHPN2 ---
Subjective The patient is seen and examined at bedside. Still have abdominal pain. Reviewed: Care Plan, H&P, Labs, Medications, Previous Orders, Radiology Changes from previous H/P or p: No Changes Eyes: No Pain, No Vision change, No Conjunctivae inflammation, No Eyelid inflammation, No Other, No Redness ENT: No Ear pain, No Ear discharge, No Nose pain, No Nose discharge, No Nose congestion, No Mouth pain, No Mouth swelling, No Throat pain, No Throat swelling, No Other Cardiovascular: No Chest Pain, No Palpitations, No Orthopnea, No Paroxysmal Noc. Dyspnea, No Edema, No Lt Headedness, No Other Respiratory: No Cough, No Dry, No Shortness of breath, No SOB with excertion, No Wheezing, No Hemoptysis, No Pleuritic Pain, No Sputum, No Other Gastrointestinal: No Nausea, No Vomiting; Abdominal Pain; No Diarrhea; C onstipation; No Melena, No Hematochezia, No Other Genitourinary: No Dysuria, No Frequency, No Incontinence, No Hematuria, No Retention, No Other Musculoskeletal: No other, No neck pain, No shoulder pain, No arm pain, No back pain, No hand pain, No leg pain, No foot pain Skin: No Rash, No Lesions, No Jaundice, No Bruising, No Other Objective Vitals Vital Signs Date Time Temp Pulse Resp B/P (MAP) Pulse Ox O2 Delivery O2 Flow Rate FiO2 06/10/24 09:00 98.5 63 17 130/80 (97) 94 98.5 06/09/24 23:36 Room Air* 0 21 Intake/Output Intake and Output 06/10/24 07:00 Intake Total 1450 ml Output Total 300 ml Balance 1150 ml Intake Oral 150 ml IV Total 1300 ml Output Urine Total 300 ml General Appearance: Alert, Oriented X3, Cooperative, No acute distress HEENT: PERRLA, EOMI, Mucous membr. moist/pink Neck: Supple Lungs: Clear to auscultation, Normal air movement Cardiovascular: Regular rate, Normal S1, Normal S2, No murmurs, Gallops, Rubs Abdomen: Normal bowel sounds, Soft, No tenderness Neuro: Cranial nerves 3-12 NL Psych/Mental Status: Mental status NL Medications Current Medications Medications Dose Ordered Sig/Mohan Route Start Time Stop Time Status Last Admin Dose Admin Pantoprazole Sodium 40 mg DAILY IV 06/10/24 10:00 06/10/24 09:34 40 MG Sodium Chloride 10 ml Q8HR IV 06/09/24 14:00 06/10/24 09:40 10 ML Acetaminophen/ Hydrocodone Bitart 1 tab Q4HP PRN PO 06/09/24 12:45 06/10/24 09:34 1 TAB Ondansetron HCl 4 mg Q4HP PRN IV 06/09/24 12:45 06/10/24 09:34 4 MG Docusate Sodium 100 mg BIDPRN PRN PO 06/09/24 12:45 Acetaminophen 650 mg Q6HP PRN PO 06/09/24 12:45 Morphine Sulfate 2 mg Q4HPRN PRN IV 06/09/24 12:45 Nitroglycerin 0.4 mg Q5MINP PRN SL 06/09/24 14:30 Morphine Sulfate 2 mg Q30M PRN IV 06/09/24 14:30 Laboratory Results Laboratory Tests 06/10/24 06:53 Chemistry Test 06/10/24 06:53 Albumin 4.2 g/dL (3.2-4.8) Calcium Level 9.7 mg/dL (8.7-10.4) Total Protein 6.6 g/dL (5.7-8.2) LFT Test 06/10/24 06:53 Alanine Aminotransferase (ALT) 33 U/L (7-40) Alkaline Phosphatase 131 U/L (46-116) H Aspartate Amino Transferase (AST) 29 U/L (13-40) Total Bilirubin 0.6 mg/dL (0.2-1.0) Urinalysis Test 06/09/24 08:52 Urine Color Light-yellow (Yellow) Urine Clarity Clear (Clear) Urine pH 6.0 (5.0-9.0) Urine Specific [place] 1.025 (1.001-1.035) Urine Protein Negative (Negative) Urine Ketones Negative (Negative) Urine Blood Trace /uL (Negative) H Urine Nitrite Negative (Negative) Urine Bilirubin Negative (Negative) Urine Urobilinogen Normal mg/dL (Negative) Urine Leukocyte Esterase Negative /uL (Negative) Urine RBC 5 /hpf (0 - 3) Urine Microscopic WBC < 1 /HPF (0-3) Urine Squamous Epithelial Cells Few /hpf (<5) Urine Bacteria None seen /hpf (None Seen) Urine Mucus Few (None Seen) Urine Glucose Normal mg/dL (Normal) Labs and/or images reviewed: Labs reviewed by me Assessment/Plan Assessment/Plan Acute abdominal pain Constipation Continuing current management. I will give the patient Fleet enema. Waiting For GI specialist to see the patient. This medical document was created using an electronic medical record system with [employer] direct computerized dictation system. Although this document has been carefully reviewed, there may still be some phonetic and typographical errors. These areas are purely typographical due to imperfections of the software programs, and do not reflect any compromise in the patient's medical care. Plan discussed with: Patient Date of Service: Jun 10, 2024 Billing Provider: ADAMA ROWELL MD Common Visit Codes: [id number] INP/OBS CARE(HIGH) ADAMA ROWELL MD Jun 10, 2024 11:31
[2024-06-10 13:00] VITALS: BP 130/74; PULSE 63; RESP 18; TEMP 98.4; O2SAT 94
[2024-06-10 17:00] VITALS: BP 99/65; PULSE 65; RESP 16; TEMP 97.8; O2SAT 94
[2024-06-10] MEDS: DICYCLOMINE HCL 10 MG CAP PO PRN (18:52)
[2024-06-10] MEDS: POLYETHYLENE GLYCOL 17 GM PWDR PO SCH (18:53)
[2024-06-10 21:00] VITALS: BP_SYST 118; BP_SYST 122; BP_DIAS 64; BP_DIAS 74; PULSE 67; RESP 16; RESP 17; TEMP 98; TEMP 98.2; O2SAT 93; O2SAT 96
--- NOTE | 2024-06-10 22:29 | DVHINCON2 ---
Date of service: Jun 10, 2024 Referring Physician Taiwo Oliva Reason for Consultation Lower abd pain History of Present Illness The patient is a 59-year-old male with past medical history of hypertension presented to [facility] ED with complaint of acute abdominal pain. Patient reports he has been experiencing abdominal pain for the past 4 weeks, associated constipation, getting worse today that prompted this visit. Patient was seen and evaluated in the ED, laboratory data shows WBC 4.4, platelets 227, sodium 141, potassium 4.2, BUN 16, creatinine 0.96, GFR 90, glucose 93. Abdomen/pelvis CT showed no acute abdominal or pelvic findings. Patient was given IV morphine sulfate 4 mg x 1, Patient was seen at bedside. He complains of lower abdominal cramping and burning. He denies any dysuria. Patient has not had a recent colonoscopy Past Medical History Past Medical History HTN Past Surgical History Negative Allergies: Coded Allergies: NO KNOWN ALLERGIES (Unverified , 05/20/24) Current Medications Current Medications Medications (Trade) Dose Ordered Sig/Mohan Route PRN Reason Start Time Stop Time Status Last Admin Pantoprazole Sodium (Protonix) 40 mg DAILY IV 06/10/24 10:00 06/10/24 09:34 Levofloxacin (Levaquin Tablet) 500 mg DAILY PO 06/11/24 22:00 06/10/24 19:47 DC Polyethylene Glycol (Miralax 17GM Powder) 17 gm DAILY PO 06/10/24 18:11 06/10/24 18:53 Dicyclomine HCl (Bentyl Capsule) 10 mg BID PRN PO irritable bowel syndrome 06/10/24 16:45 06/10/24 18:52 Levofloxacin (Levaquin Tablet) 500 mg DAILY@2200 PO 06/10/24 22:00 Vital Signs Vital Signs Date Time Temp Pulse Resp B/P (MAP) Pulse Ox O2 Delivery O2 Flow Rate FiO2 06/10/24 17:00 97.8 65 16 99/65 (76) 94 97.8 06/10/24 08:30 Room Air* 0 21 Physical Exam General Appearance: Alert, Oriented X3, Cooperative, No acute distress HEENT: Atraumatic, PERRLA, EOMI, Mucous membr. moist/pink Respiratory: Clear to auscultation, Normal air movement Cardiovascular: Regular rate, Normal S1, Normal S2, No murmurs Abdominal: Normal bowel sounds, Soft, No hepatospenomegaly, No masses, Other (Reports tenderness) Extremities: No clubbing, No cyanosis, No edema, Normal pulses, No tenderness/swelling Skin: No rashes, No breakdown, No significant lesion Neuro: Normal gait, Normal speech, Strength at 5/5 X4 ext, Normal tone, Sensation intact, Cranial nerves 3-12 NL, Reflexes 2+ Psych/Mental Status: Mental status NL, Mood NL Labs/Diagnostic Data Labs Test 06/10/24 06:53 06/09/24 08:52 Range/Units White Blood Count 5.4 4.4-10.8 10^3/uL Red Blood Count 4.98 4.5-5.90 10^6/uL Hemoglobin 15.1 13.5-17.5 g/dL Hematocrit 45.2 41.0-53.0 % Mean Corpuscular Volume 90.8 80.0-100.0 fL Mean Corpuscular Hemoglobin 30.4 28.0-32.0 pg Mean Corpuscular Hemoglobin Concent 33.5 32.0-36.0 g/dL Red Cell Distribution Width 13.6 11.8-14.3 % Platelet Count 204 140-450 10^3/uL Mean Platelet Volume 8.3 6.9-10.8 fL Neutrophils (%) (Auto) 64.5 37.0-80.0 % Lymphocytes (%) (Auto) 22.9 10.0-50.0 % Monocytes (%) (Auto) 9.8 0.0-12.0 % Eosinophils (%) (Auto) 2.4 0.0-7.0 % Basophils (%) (Auto) 0.4 0.0-2.0 % Neutrophils # (Auto) 3.5 1.6-8.6 10 ^3/uL Lymphocytes # (Auto) 1.2 0.4-5.4 10 ^3/uL Monocytes # (Auto) 0.5 0-1.3 10 ^3/uL Eosinophils # (Auto) 0.1 0-0.8 10 ^3/uL Basophils # (Auto) 0 0-0.2 10 ^3/uL Nucleated Red Blood Cells 0.1 % Sodium Level 140 136-145 mmol/L Potassium Level 4.3 3.5-5.1 mmol/L Chloride Level 108 H 98-107 mmol/L Carbon Dioxide Level 25 20-31 mmol/L Anion Gap 7 5-15 Blood Urea Nitrogen 12 9-23 mg/dL Creatinine 1.00 0.700-1.30 mg/dL Glomerular Filtration Rate Calc 86 >90 mL/min BUN/Creatinine Ratio 12.0 10.0-20.0 Serum Glucose 94 74-106 mg/dL Calcium Level 9.7 8.7-10.4 mg/dL Total Bilirubin 0.6 0.2-1.0 mg/dL Aspartate Amino Transferase (AST) 29 13-40 U/L Alanine Aminotransferase (ALT) 33 7-40 U/L Alkaline Phosphatase 131 H 46-116 U/L Total Protein 6.6 5.7-8.2 g/dL Albumin 4.2 3.2-4.8 g/dL Urine Color Light-yellow Yellow Urine Clarity Clear Clear Urine pH 6.0 5.0-9.0 Urine Specific [place] 1.025 1.001-1.035 Urine Protein Negative Negative Urine Ketones Negative Negative Urine Blood Trace H Negative /uL Urine Nitrite Negative Negative Urine Bilirubin Negative Negative Urine Urobilinogen Normal Negative mg/dL Urine Leukocyte Esterase Negative Negative /uL Urine RBC 5 0 - 3 /hpf Urine Microscopic WBC < 1 0-3 /HPF Urine Squamous Epithelial Cells Few <5 /hpf Urine Bacteria None seen None Seen /hpf Urine Mucus Few None Seen Urine Glucose Normal Normal mg/dL Problems(with codes): (1) Abnormal finding on GI tract imaging (2) Constipation (3) Acute abdominal pain (4) Hematuria Plan/Recommendation Assessment plan 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 daily We will give him Bentyl 10 mg p.o. three times a day as needed for abdominal pain Advance diet as tolerated Outpatient follow up with GI Services to discuss outpatient elective colonoscopy once medically stabilized Once again thank you for allowing me to participate in the care of this patient Plan discussed with: Patient, Other (Nurse) GREGORIO FRANCO MD Jun 10, 2024 22:29
[2024-06-10] MEDS: levoFLOXacin 500 MG TAB PO SCH (22:55)
[2024-06-11 01:00] VITALS: BP 118/64; PULSE 67; RESP 17; TEMP 98; O2SAT 96
[2024-06-11 05:00] VITALS: BP_SYST 115; BP_SYST 121; BP_DIAS 67; BP_DIAS 68; PULSE 65; PULSE 93; RESP 15; RESP 16; TEMP 98; TEMP 98.3; O2SAT 100; O2SAT 96
[2024-06-11 08:35] VITALS: BP 138/82; PULSE 66; RESP 18; TEMP 98; O2SAT 98
[2024-06-11 10:06] LABS: Urine Bacteria None Seen /hpf (None Seen)
[2024-06-11 10:10] LABS: Urine Blood TRACE /uL (Negative); Urine Clarity Clear (Clear); Urine Color Light-Yellow (Yellow); Urine Protein, UAD Negative (Negative); Urine Squamous Epithelial Cell None Seen /hpf (<5); Urine Urobilinogen Normal (Negative); Urine WBC < 1 /HPF (0-3); Urine pH 5.5 (5.0-9.0)
[2024-06-11] MEDS ORDERED: DOCU-94 PO (12:06)
[2024-06-11] MEDS ORDERED: DICY10CA PO (12:06)
[2024-06-11] MEDS ORDERED: LACT10PA2 PO (12:06)
--- NOTE | 2024-06-11 12:08 | DVHDS2 ---
Discharge Summary Date of Admission Jun 09, 2024 at 14:26 Date of Discharge: Jun 11, 2024 Admitting Diagnosis Acute abdominal pain Constipation Labs/Diagnostic Data: Laboratory Results Test 06/11/24 09:36 06/10/24 06:53 06/09/24 08:52 Urine Color Light-yellow (Yellow) Urine Clarity Clear (Clear) Urine pH 5.5 (5.0-9.0) Urine Specific [place] 1.010 (1.001-1.035) Urine Protein Negative (Negative) Urine Ketones Negative (Negative) Urine Blood Trace /uL (Negative) Urine Nitrite Negative (Negative) Urine Bilirubin Negative (Negative) Urine Urobilinogen Normal mg/dL (Negative) Urine Leukocyte Esterase Negative /uL (Negative) Urine RBC 1 /hpf (0 - 3) Urine Microscopic WBC < 1 /HPF (0-3) Urine Squamous Epithelial Cells None seen /hpf (<5) Urine Bacteria None seen /hpf (None Seen) Urine Glucose Normal mg/dL (Normal) White Blood Count 5.4 10^3/uL (4.4-10.8) Red Blood Count 4.98 10^6/uL (4.5-5.90) Hemoglobin 15.1 g/dL (13.5-17.5) Hematocrit 45.2 % (41.0-53.0) Mean Corpuscular Volume 90.8 fL (80.0-100.0) Mean Corpuscular Hemoglobin 30.4 pg (28.0-32.0) Mean Corpuscular Hemoglobin Concent 33.5 g/dL (32.0-36.0) Red Cell Distribution Width 13.6 % (11.8-14.3) Platelet Count 204 10^3/uL (140-450) Mean Platelet Volume 8.3 fL (6.9-10.8) Neutrophils (%) (Auto) 64.5 % (37.0-80.0) Lymphocytes (%) (Auto) 22.9 % (10.0-50.0) Monocytes (%) (Auto) 9.8 % (0.0-12.0) Eosinophils (%) (Auto) 2.4 % (0.0-7.0) Basophils (%) (Auto) 0.4 % (0.0-2.0) Neutrophils # (Auto) 3.5 10 ^3/uL (1.6-8.6) Lymphocytes # (Auto) 1.2 10 ^3/uL (0.4-5.4) Monocytes # (Auto) 0.5 10 ^3/uL (0-1.3) Eosinophils # (Auto) 0.1 10 ^3/uL (0-0.8) Basophils # (Auto) 0 10 ^3/uL (0-0.2) Nucleated Red Blood Cells 0.1 % Sodium Level 140 mmol/L (136-145) Potassium Level 4.3 mmol/L (3.5-5.1) Chloride Level 108 mmol/L (98-107) Carbon Dioxide Level 25 mmol/L (20-31) Anion Gap 7 (5-15) Blood Urea Nitrogen 12 mg/dL (9-23) Creatinine 1.00 mg/dL (0.700-1.30) Glomerular Filtration Rate Calc 86 mL/min (>90) BUN/Creatinine Ratio 12.0 (10.0-20.0) Serum Glucose 94 mg/dL (74-106) Calcium Level 9.7 mg/dL (8.7-10.4) Total Bilirubin 0.6 mg/dL (0.2-1.0) Aspartate Amino Transferase (AST) 29 U/L (13-40) Alanine Aminotransferase (ALT) 33 U/L (7-40) Alkaline Phosphatase 131 U/L (46-116) Total Protein 6.6 g/dL (5.7-8.2) Albumin 4.2 g/dL (3.2-4.8) Urine Mucus Few (None Seen) Other Laboratory Tests 06/10/24 06:53 Brief Hx & Hospital Course: This is a 59 years old male with past medical history hypertension come to emergency department because of abdominal pain for four weeks. Patient also complained of constipation and hematuria. CT abdomen pelvis showed no acute abdomen pelvic findings. The patient BUN was 16, creatinine 0.96. The patient had constipation per CT scan. The patient was given Fleet enema and able to move bowel movement. GI specialist Dr. Sandhu see the patient, she recommend outpatient colonoscopy. The patient has hematuria which resolved by the time he see me. Recommend urology consulted as outpatient for further management of the hematuria. Activity as tolerated. Diet per home diet. Follow up with primary care physician 1-2. Increase diet with fiber. 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 Most of his diet is fast food diet like hamburger and pizza. Advice to eat more vegetable in more healthy diet. Physical exam: HEENT: Normocephalic atraumatic pupils equal react to light and accommodation. Extraocular muscles intact, conjunctiva pink, oropharynx moist, no thrush, no exudate. Lymphatic: No lymphadenopathy Cardiovascular exam: S1, S2 was heard. No murmurs, rubs, gallops Lung: Clear on auscultation bilaterally, no wheeze, rale, rhonchi. GI: Abdominal soft, nondistended, nontenderness, positive bowel sounds. Extremity: No crepitus, cyanosis, edema. Pedal pulses present bilateral. Full range of motion. Skin: Normal turgor, no rash. Psych: Alert, oriented x3. Neurology: No focal deficits, cranial nerve II to XII grossly intact. This medical document was created using an electronic medical record system with [employer] direct computerized dictation system. Although this document has been carefully reviewed, there may still be some phonetic and typographical errors. These areas are purely typographical due to imperfections of the software programs, and do not reflect any compromise in the patient's medical care. Condition at Discharge: Stable Final Diagnosis/Problems List Acute abdominal pain Constipation, resolved. Hematuria, resolved Discharge Disposition: Home Discharge Instruct/Medications Diet: Regular Diet comment: INCREASE FIBER Activity: No Restrictions, As Tolerated Follow Up/Referral: PCP 1-2 WEEKS Medications: SEE MED LIST Discharge Statement: "Patient was advised to return to the ER or call 911 if any headaches, dizziness, shortness of breath, chest pain, abdominal pain, bleeding, fevers, or worsening of medical condition. Patient was counseled about treatment plan, medications, possible side effects, patientverbalized understanding. All questions were answered to the best of my ability. This discharge took greater then 30 minutes in planning, reviewing documentation, counseling the patient, and discussing with other team members." ASSESSMENT ASSESSMENT Assessment CONSTIPATION Date of Service: Jun 11, 2024 Billing Provider: ADAMA ROWELL MD Common Visit Codes: 45137-ZZG/OBS DISCH DAY >30min ADAMA ROWELL MD Jun 11, 2024 12:07
[2024-06-11 13:00] VITALS: BP 135/90; PULSE 67; RESP 18; TEMP 97.8; O2SAT 95
[2024-06-11 16:44] VITALS: BP 136/92; PULSE 70; RESP 18; TEMP 98; O2SAT 94
--- NOTE | 2024-06-11 21:15 | DVHPN2 ---
Progress Note - Dictate Date Seen: Jun 11, 2024 (Late entry Time of visit was 2:30 p.m.) Medical Necessity Reason Pt with a Central, PICC or Fol: No Subjective No new complaints Patient is tolerating diet Lower abdominal pain is improved Three bowel movements recorded Repeat UA was negative vital signs Vital Sign Date Time Temp Pulse Resp B/P (MAP) Pulse Ox O2 Delivery O2 Flow Rate FiO2 06/11/24 16:44 98.0 70 18 136/92 (107) 94 98.0 06/11/24 08:30 Room Air* 0 21 Total Intake and Output 06/10/24 06/10/24 06/11/24 15:00 23:00 07:00 Intake Total 500 ml 400 ml Output Total 450 ml Balance 50 ml 400 ml objective General Appearance: Alert, Oriented X3, Cooperative, No acute distress HEENT: Atraumatic, PERRLA, EOMI, Mucous membr. moist/pink Respiratory: Clear to auscultation, Normal air movement Cardiovascular: Regular rate, Normal S1, Normal S2, No murmurs Abdominal: Normal bowel sounds, Soft, No hepatospenomegaly, No masses, Other (Reports tenderness) Extremities: No clubbing, No cyanosis, No edema, Normal pulses, No tenderness/swelling Skin: No rashes, No breakdown, No significant lesion Neuro: Normal gait, Normal speech, Strength at 5/5 X4 ext, Normal tone, Sensation intact, Cranial nerves 3-12 NL, Reflexes 2+ Psych/Mental Status: Mental status NL, Mood NL laboratory and microbiology Laboratory Tests 06/10/24 06:53 Test 06/10/24 06:53 Range/Units Serum Glucose 94 74-106 mg/dL Problems(with codes): (1) Abnormal finding on GI tract imaging (2) Constipation (3) Acute abdominal pain (4) Hematuria Prognosis Plan Discharge planning is in progress Patient advised to increase fluid and fiber intake Patient was given Levaquin 500 mg p.o. daily He will follow up in my office in 2-4 weeks and arrange outpatient elective colonoscopy Once again thank you for allowing me to participate in the care of this patient Plan discussed with: Patient GREGORIO FRANCO MD Jun 11, 2024 21:15
[2024-06-11] MEDS ORDERED: levoFLOXacin 500 MG TAB PO SCH (22:00)
== END 2024-06-11 17:40 | disposition home or self-care (01) | DRG 392 ==
LOC: ER 08:47 → OVERFLOW 14:26 → WEST WING 22:00
PROVIDERS: ADMIT Nurse Practitioner Family; ATTEND Internal Medicine
DX: K59.00 Constipation, unspecified (principal); R31.9 Hematuria, unspecified; I10 Essential (primary) hypertension; Z79.899 Other long term (current) drug therapy
CPT/HCPCS: 36415; 74176; 80053; 81001; 85025; 96361; 96374; 96375; G0378; J2405; J2470

== ENCOUNTER → 2024-07-25 | Outpatient (CLI) | payer BC ==
[~2024-07-25] MED LIST: DICY10CA PO; DOCU-94 PO; LACT10PA2 PO
[2024-07-25 10:59] LABS: Prostate Specific Antigen 2.02 ng/mL (0.0-4.0)
[2024-07-25 11:02] LABS: Triglycerides 100 mg/dL (< 150)
[2024-07-25 11:03] LABS: Free T4 (Free Thyroxine) 1.16 ng/dL (0.89-1.76); LDL Cholesterol 113 mg/dL (< 100)
[2024-07-25 11:04] LABS: Cholesterol 156 mg/dL (< 200); Free T3 3.96 pg/mL (2.3-4.2); HDL Cholesterol 38 mg/dL (40-59)
== END | disposition home or self-care (01) ==
LOC: LAB 09:49
PROVIDERS: ATTEND Internal Medicine
DX: N40.0 Benign prostatic hyperplasia without lower urinary tract symptoms (principal); R31.9 Hematuria, unspecified; E66.9 Obesity, unspecified
CPT/HCPCS: 36415; 80061; 84153; 84439; 84443; 84481

== ENCOUNTER → 2024-09-04 | Outpatient (CLI) | payer BC ==
[2024-09-04 10:14] LABS: Urine Bacteria None Seen /hpf (None Seen)
[2024-09-04 10:27] LABS: Urine Blood TRACE /uL (Negative); Urine Clarity Clear (Clear); Urine Color Light-Yellow (Yellow); Urine Protein, UAD Negative (Negative); Urine Specific Gravity 1.019 (1.001-1.035); Urine Squamous Epithelial Cell None Seen /hpf (<5); Urine Urobilinogen Normal (Negative); Urine WBC 1 /HPF (0-3); Urine pH 5.5 (5.0-9.0)
[2024-09-04 10:49] LABS: Alanine Aminotransferase 34 U/L (7-40); Albumin 4.4 g/dL (3.2-4.8); Anion Gap 9 (5-15); Aspartate Aminotransferase 20 U/L (13-40); BUN/Creatinine Ratio 16.8 (10.0-20.0); Blood Urea Nitrogen 16 mg/dL (9-23); Calcium 9.8 mg/dL (8.7-10.4); Carbon Dioxide 23 mmol/L (20-31); Glucose 101 mg/dL (74-106); Potassium 4.5 mmol/L (3.5-5.1); Sodium 142 mmol/L (136-145); Total Protein 7.2 g/dL (5.7-8.2)
[2024-09-04 10:50] LABS: Bilirubin, Total 0.5 mg/dL (0.2-1.0)
[2024-09-04 10:51] LABS: Alkaline Phosphatase 152 U/L (46-116); Chloride 110 mmol/L (98-107)
== END | disposition home or self-care (01) ==
LOC: LAB 09:53
PROVIDERS: ATTEND Internal Medicine
DX: I10 Essential (primary) hypertension (principal); N28.1 Cyst of kidney, acquired; K59.00 Constipation, unspecified
CPT/HCPCS: 36415; 80053; 81001; 82105; 82378; 83036

== ENCOUNTER 2024-10-24 08:36 | Outpatient (CLI) | payer BC ==
[2024-10-24 09:32] LABS: Albumin 4.4 g/dL (3.2-4.8); Bilirubin, Direct 0.2 mg/dL (<0.3); Bilirubin, Total 0.7 mg/dL (0.2-1.0)
[2024-10-24 09:44] LABS: Creatinine, Urine 193.48 mg/dL (30.0-125.0)
[2024-10-24 09:46] LABS: Microalb/Creat Ratio, Urine < 3.0
== END 2024-10-24 17:00 | disposition home or self-care (01) ==
LOC: LAB 08:36
PROVIDERS: ATTEND Internal Medicine
DX: N28.1 Cyst of kidney, acquired (principal); K80.20 Calculus of gallbladder without cholecystitis without obstruction
CPT/HCPCS: 36415; 80076; 82043; 82570